=== PATIENT | female | born 1950 | race Caucasian/White ===

== ENCOUNTER → 2020-11-19 01:19 | Outpatient (CLI) | payer MEDICARE, OTHER, SELFPAY ==
[2020-11-19 19:43] LABS: SARS-CoV-2 RNA PCR Negative
== END ==
PROVIDERS: Visit Provider Internal Medicine Gastroenterology
DX: Z01.812 Encounter for preprocedural laboratory examination (principal); Z20.822 Contact with and (suspected) exposure to COVID-19
CPT/HCPCS: C9803; U0003; U0005

== ENCOUNTER 2020-11-23 02:10 | Day surgery (SDC) | payer MEDICARE, OTHER, SELFPAY ==
[2020-11-11 15:04] VITALS: BMI 19.5
--- NOTE | 2020-11-22 15:28 | WPDANESEPPF ---
Anes - Initial Pre Proc Eval Procedure: Operation Date: 11/23/20 07:30 Proposed Procedures p Screening Colonoscopy - Femi Ronquillo MD Date/Time: 11/22/20 15:28 Surgeon: Femi Ronquillo MD Pre Op Diagnosis: family hx of colon ca, neoplasm screening Patient Data Age: 70 Gender: F Height: 1.6 m Weight: 50 kg Allergies Allergy/AdvReac Type Severity Reaction Status Date / Time No Known Allergies Allergy Verified 11/23/20 06:27 Home Medications Medication Instructions Recorded Confirmed Type buspirone 5 mg BID 11/11/20 11/11/20 History losartan 50 mg PO DAILY 11/11/20 11/11/20 History meloxicam 15 mg PO PRN PRN 11/11/20 11/11/20 History raloxifene 60 mg DAILY 11/11/20 11/11/20 History rosuvastatin 10 mg PO 3XW 11/11/20 11/11/20 History Patient hx anesthesia problems: none Family hx anesthesia problems: none [facility] Past Medical History Medical History HTN (hypertension) Hypercholesterolemia Osteopenia Social History Social History Years smoked: 42 Smoking status: Current every day smoker Substance use type: does not use Spiritual care concerns: No Anes - Eval Final PreProcedure Day of Procedure 11/22/20 15:28 Patient weight: normal Heart: regular rate and rhythm Lungs: clear to auscultation and normal air movement Airway: Mallampati scale class II Neurological: alert and oriented Last oral intake: >/= 8 hours ASA classification: II Emergent: no Anesthetic plan: proceed Anesthesia type and monitoring: general GIVS Informed Consent: The patient's anesthetic plan and its attendant risks and benefits were discussed with the patient/family/POA. Questions were solicited and answers provided to the satisfaction of the patient/family/POA.
[2020-11-23 06:29] VITALS: BP 83/54; PULSE 60; RESP 18; TEMP 36.7; O2SAT 99
[2020-11-23] MEDS: LACTATED RINGERS 1,000 ML 150 ML IV CONT (06:38)
--- NOTE | 2020-11-23 06:55 | PM.HPGS ---
History of Present Illness History of Present Illness Consent: Risks, benefits, and alternatives have been discussed and questions answered. Patient agrees to proceed with procedure. Chief complaint: family hx of colon ca, neoplasm screening Narrative: Kaera Mancuso is a 70 year old female Here for colon cancer screening. She has a family history of colon cancer Review of Systems Review of Systems: All systems reviewed & are unremarkable except as noted in HPI and below PMFSH Past Medical History Medical History HTN (hypertension) Hypercholesterolemia Osteopenia Social History Social History Years smoked: 42 Smoking status: Current every day smoker Substance use type: does not use Spiritual care concerns: No Meds Home Medications and Allergies Home Medications Medication Instructions Recorded Confirmed Type buspirone 5 mg BID 11/11/20 11/11/20 History losartan 50 mg PO DAILY 11/11/20 11/11/20 History meloxicam 15 mg PO PRN PRN 11/11/20 11/11/20 History raloxifene 60 mg DAILY 11/11/20 11/11/20 History rosuvastatin 10 mg PO 3XW 11/11/20 11/11/20 History Allergies Allergy/AdvReac Type Severity Reaction Status Date / Time No Known Allergies Allergy Verified 11/23/20 06:27 Vital Signs Vital Signs - 24 hr 11/23/20 06:29 Temperature 36.7 C Pulse Rate 60 Respiratory Rate 18 Blood Pressure 83/54 L Pulse Oximetry 99 Exam Resp: Auscultation: clear to auscultation bilaterally Cardio: Rate: regular rate Rhythm: regular rhythm GI: GI Palp: Yes Soft to palpation and No Tenderness to palpation present (GI) Assessment and Plan Assessment and plan (1) Colon cancer screening: Code(s): Z12.11 - Encounter for screening for malignant neoplasm of colon Status: Acute Assessment and Plan: Colonoscopy with possible biopsy or polypectomy or cautery or injection of substances.
[2020-11-23 07:40] VITALS: BP 123/68; PULSE 68; RESP 22; O2SAT 100
[2020-11-23 07:50] VITALS: BP 123/76; PULSE 71; RESP 24; O2SAT 100
[2020-11-23 08:00] VITALS: BP 125/75; PULSE 60; RESP 18; O2SAT 100
== END 2020-11-23 08:17 | disposition home or self-care (01) ==
PROVIDERS: Visit Provider Internal Medicine Gastroenterology
PROC: 0DJD8ZZ Inspection of Lower Intestinal Tract, Via Natural or Artificial Opening Endoscopic (ICD-10-PCS; CPT 45378; principal; 2020-11-23 07:30)
DX: Z12.11 Encounter for screening for malignant neoplasm of colon (principal); K57.30 Diverticulosis of large intestine without perforation or abscess without bleeding; Z80.0 Family history of malignant neoplasm of digestive organs; I10 Essential (primary) hypertension; E78.00 Pure hypercholesterolemia, unspecified; M85.80 Other specified disorders of bone density and structure, unspecified site; F17.200 Nicotine dependence, unspecified, uncomplicated
CPT/HCPCS: G0105; J2704; J7120

== ENCOUNTER 2024-08-04 00:18 | Day surgery (SDC) | payer MEDICARE, SELFPAY ==
[2024-07-23 11:07] VITALS: BMI 19.5
--- OUTSIDE RECORDS SUMMARY | 2024-08-04 00:22 | XMS_ITS | Clinical Summary ---
Author Organization [facility] Address [address] [place] [address] Phone Care Team Providers Care Direct Selling Counselor Name Role Phone Arthur Chang MD Primary Care Provider [phone] Allergies No known active allergies Medications lisinopril (PRINIVIL) 10 mg Oral tablet Take 10 mg by mouth daily. Active rosuvastatin (CRESTOR) 10 mg Oral tablet Take 5 mg by mouth daily at bedtime. Active raloxifene (EVISTA) 60 mg Oral tablet Take 1 Tab by mouth daily. 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 Gender Identity Not on file Sexual Orientation Not on file Last Filed Vital Signs Vital Sign Reading Time Taken Comments Blood Pressure 124/86 03/24/2012 11:59 AM CDT Pulse - - Temperature - - Respiratory Rate - - Oxygen Saturation - - Inhaled Oxygen Concentration - - Weight 60.1 kg (132 lb 8 oz) 03/24/2012 11:59 AM CDT Height 161.9 cm (5' 3.75 ) 03/24/2012 11:59 AM C DT Body Mass Index 22.92 03/24/2012 11:59 AM CDT Plan of Treatment Health Maintenance Due Date Last Done Comments DTAP/TDAP/TD VACCINES (1 - Tdap) 1970 PNEUMOCOCCAL VACCINE 65+ YEA RS (1 of 2 - PCV) 1970 COLORECTAL SCREENING 1996 FIT-DNA Q 3 years 1996 Flex Sig/CT Colonography Q 5 years 1996 ZOSTER VACCINE (1 of 2) 2001 BREAST CANCER SCREENING 03/05/2013 03/05/2012 Colorectal Cancer Screening 03/24/2013 FIT/FOBT Q 1 year 03/24/2013 03/24/2012 INFLUENZA VACCINE (#1) 2024 RSV VACCINE (60+ or ) (1 - 1-dose 75+ series) 2026 OSTEOPOROSIS SCREENING Completed 03/24/2012, 2008 Procedures Procedure Name Priority Date/Time Associated Diagnosis Comments POC OCCULT BLOOD 1 CARD Routine 03/24/2012 Screening for malignant neoplasm of the rectum XR DEXA BONE DENSITY AXIAL 1 OR MORE SITES Routine 03/24/2012 History of osteoporosis MAMMO SCREEN BILAT W OR WO CAD Routine 03/05/2012 from Last 3 Months or Most Recently Relevant to Health Maintenance Results * (ABNORMAL) XR DEXA BONE DENSITY AXIAL 1 OR MORE SITES (03/24/2012) T-SCORE FEMUR (LEFT) [facility] T-SCORE FEM[facility] (RIGHT) [facility] T-SCORE FEMUR -2.1(A) >=-0.99 [facility] T-SCORE SPINE -2.6(A) >=-0.99 [facility] T-SCORE HIP (LEFT) [facility] T-SCORE HIP (RIGHT) [facility] T-SCORE HIP >=-0.99 [facility] Anatomical Region Laterality Modality Other us Veronica Padilla MD DIAGNOSTIC IMAGING ORDERABLE S Final Result * POC OCCULT BLOOD 1 CARD (03/24/2012) OCCULT BLOOD #1 Negative NEG [facility] Stool specimen (specimen) us Veronica Padilla MD POINT OF CARE TESTING Final Result [facility] * MAMMO DIGITAL SCREEN BILAT (03/05/2012) Anatomical Region Laterality Modality Breast Bilateral Other us Veronica Padilla MD MAMMO ORDERABLES Final Resul t from Last 3 Months or Most Recently Relevant to Health Maintenance Insurance Care Teams Direct Selling Counselor Relationship Specialty Start Date End Date Arthur Chang MD PCP - General Internal Medicine 03/24/12
--- OUTSIDE RECORDS SUMMARY | 2024-08-04 00:22 | XMS_ITS | Clinical Summary ---
Author Organization [facility] Address [address] [place] [address] Care Team Providers Care Synoptic Meteorologist Name Role Phone Unavailable Primary Care Provider Unavailabl e Source Comments [facility],non-owned Affiliates and Associated Physician Practices is amultiple site organization consisting of ambulatory clinics and hospital sitesin [place], [place], [place] and [place]. This disclosure is being madepursuant to the Care Everywhere program and may not contain all information available regarding this patient. Last updated 18.[facility] [employer] Social History Tobacco Use Types Packs/Day Years Used Date Smoking Tobacco: Never Assessed Sex and Gender Information Value Date Recorded Sex Assigned at Not on file Gender Identity Not on file Sexual Orientation Not on file Plan of Treatment Health Maintenance Due Date Last Done Comments BONE DENSITY TESTING 1950 COLOGUARD (AGES 45-75) - COL ON CA SCREENING 1951 COLON MONITORING 1951 COLONOSCOPY - COLON CA SCREENING 1950 CT COLONOGRAPHY - COLON CA SCREENING 1950 Colorectal Cancer Screening 1951 FIT - COLON CA SCREENING 1951 FLEX SIG - COLON CA SCREENING 1951 LIPID TESTING 1950 MAMMOGRAM 1950 MEDICARE AWV ? 12 MONTHS 1950 HEPATITIS C SCREENING 05/15/1969 DTAP/TDAP/TD VACCINES (1 - Tdap) 1970 PNEUMOCOCCAL VACCINE 50+ (1 of 1 - PCV) 2001 ZOSTER VACCINE (1 of 2) 2001 COVID-19 VACCINE (1 - 2023-2 5 season) 2024 INFLUENZA VACCINE (#1) 2024 DEPRESSION SCREENING 07/08/2024 Respiratory Syncytial Virus (RSV) Vaccine Pt: or over 60 yrs (1 - 1-dose 75+ series) 2026 HEPATITIS B VACCINE Aged Out No longe r eligible based on patient's age to complete this topic HIB VACCINE Aged Out No longer eligi ble based on patient's age to complete this topic HPV VACCINE Aged Out No longer eligi ble based on patient's age to complete this topic MENINGOCOCCAL (Group B) VACCINE Aged Out No longer eligible based on patient's age to complete this topic MENINGOCOCCAL VACCINE Aged Out No stephanie veronica eligible based on patient's age to complete this topic Advance Directives Documents on File Type Date Recorded Patient Procurement Representative Expl anation Adv Directive/Living Will/POA 11/20/2016
--- OUTSIDE RECORDS SUMMARY | 2024-08-04 00:22 | XMS_ITS | Referral Summary ---
Author Organization [facility] Address [address] [place] [address] Care Team Providers Care Double Cutter Name Role Phone Unavailable Primary Care Provider Unavailabl e Source Comments [facility],non-owned Affiliates and Associated Physician Practices is amultiple site organization consisting of ambulatory clinics and hospital sitesin [place], [place], [place] and [place]. This disclosure is being madepursuant to the Care Everywhere program and may not contain all information available regarding this patient. 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
--- OUTSIDE RECORDS SUMMARY | 2024-08-04 00:25 | XMS_ITS | Data Portability ---
Author Organization [facility] Address [address] [place] [address] Care Team Providers Care Contract Lead Name Role Phone SANTOS CHANG Primary Care Provider [phone] Assessment Encounter Date Assessment Date Assessment LastModified by Organization Details LastModified Time 09/16/2023 09/16/2023 Hypertension controlled dyslipidemia low-fat diet and medication osteoarthritis meloxicam sparingly GERD stable omeprazole to continue osteopenia raloxifen avoidance of tobacco products and alcohol sparingly follow-up 6 months. Mammogram ordered. old records [email or web address] Not available 09/16/2023 10:27:16 03/17/2024 03/17/2024 we will continue current therapy. Colonoscopy. She will be due for a bone density next year. Follow up will be in 6 months all questions answered advised to stay up to date on flu COVID pneumococcal [email or web address] Not available 04/05/2024 13:00:39 04/16/2024 04/16/2024 we will empirically treat with Flagyl 500 t.i.d. times 10 days if this is negative then we will consider restarting stool sample versus colonoscopy and CT scan. Quitting tobacco care instructions as well. She will let me know after 10 days how she is doing [email or web address] Not available 04/18/2024 17:03:37 Plan of Treatment Reminders Order Date Submit Date Provider Last Modified By Organization Details Last Modified Time Details Appointments ANY 15 2024 10:00A Farhana Chang MD Not available Not available Not available Lab lipid panel, serum 2023 024 [place] [facility], [address], [place], [address], 03/18/2024 06:20:55 CMP, serum or plasma 2023 024 [place] [facility], [address], [place], [address], 03/18/2024 06:20:55 CBC w/ auto diff 2023 024 [place] [facility], [address], [place], [address], 03/18/2024 06:20:56 Referral None recorded. Procedures colonosco py screening (PROC) 2023 024 dion [facility], [address] [facility] [address], [place], [address], 08/03/2024 11:32:55 Surgeries None recorded. Imaging MAMMO, screening , bilateral 2023 024 [facility] ([facility]), [address] [facility], [place], [address], 09/30/2023 12:16:56 Medication Orders metronida zole 500 mg tablet 2023 [email or web address] [id number], [address] [facility], [place], [place], [id number], 04/16/2024 17:57:18 Patient TargetsNo targets recorded. Patient Instructions Encounter Date Encounter Id Patient Instructions Last Modified By Organization Details Last Modified Time 04/16/2024 [id number] Quitting Tobacco : Care Instructions [email or web address] Not available 04/16/2024 17:57:18 Reason for Referral None Reported. Results Created Date Observation Date Name Description Value Unit Range Abnormal Flag Note LastModifiedBy Organization Detail LastModifiedTime 03/17/20 24 03/18/2024 LIPID PANEL cholesterol, total 176 mg/dL 100-19 9 Not Available [facility] ([facility]) [address] [facility], [place], [address], 03/18/2024 06:20:54 03/17/20 24 03/18/2024 LIPID PANEL triglyceride s 80 mg/dL 0-149 Not Available [facility] ([facility]) [address] [place], [address], 03/18/2024 06:20:54 03/17/20 24 03/18/2024 LIPID PANEL HDL cholesterol 83 mg/dL >39 Not Available [facility]) [address] [place], [address], 03/18/2024 06:20:54 03/17/20 24 03/18/2024 LIPID PANEL VLDL cholesterol ganesh 15 mg/dL 5-40 Not Available [facility] ([facility]) [address] [place], [address], 03/18/2024 06:20:54 03/17/20 24 03/18/2024 LIPID PANEL LDL chol calc ([facility]) 78 mg/dL 0-99 Not Available [facility]) [address] [place], [address], 03/18/2024 06:20:54 03/17/20 24 03/18/2024 COMP. METAB OLIC PANEL (14) glucose 112 mg/dL 70-99 above high normal Not Available [facility] ([facility]) [address] [place], [address], 03/18/2024 06:20:55 03/17/20 24 03/18/2024 COMP. METAB OLIC PANEL (14) BUN 17 mg/dL 8-27 Not Available [facility] ([facility]) [address] [place], [address], 03/18/2024 06:20:55 03/17/20 24 03/18/2024 COMP. METAB OLIC PANEL (14) creatinine 0.81 mg/dL 0.57-1 .00 Not Available [facility] ([facility]) [address] [place], [address], 03/18/2024 06:20:55 03/17/20 24 03/18/2024 COMP. METAB OLIC PANEL (14) eGFR 77 mL/mi n/1.7 3 >59 Not Available [facility] ([facility]) [address], [place], [address], 03/18/2024 06:20:55 03/17/20 24 03/18/2024 COMP. METAB OLIC PANEL (14) BUN/creatini ne ratio 21 12-28 Not Available [facility] ([facility]) [address] [facility], [place], [address], 03/18/2024 06:20:55 03/17/20 24 03/18/2024 COMP. METAB OLIC PANEL (14) sodium 138 mmol/ L 134-14 4 Not Available [facility] ([facility]) [address] [facility], [place], [address], 03/18/2024 06:20:55 03/17/20 24 03/18/2024 COMP. METAB OLIC PANEL (14) potassium 4.6 mmol/ L 3.5-5. 2 Not Available [facility] ([facility]) [address] [facility], [place], [address], 03/18/2024 06:20:55 03/17/20 24 03/18/2024 COMP. METAB OLIC PANEL (14) chloride 100 mmol/ L 96-106 Not Available [facility] ([facility]) [address] [facility], [place], [address], 03/18/2024 06:20:55 03/17/20 24 03/18/2024 COMP. METAB OLIC PANEL (14) carbon dioxide, total 24 mmol/ L 20-29 Not Available [facility] ([facility]) [address] [facility], [place], [address], 03/18/2024 06:20:55 03/17/20 24 03/18/2024 COMP. METAB OLIC PANEL (14) calcium 9.8 mg/dL 8.7-10 .3 Not Available [facility] ([facility]) [address], [place], [address], 03/18/2024 06:20:55 03/17/20 24 03/18/2024 COMP. METAB OLIC PANEL (14) protein, total 7.2 g/dL 6.0-8. 5 Not Available [facility] ([facility]) [address], [place], [address], 03/18/2024 06:20:55 03/17/20 24 03/18/2024 COMP. METAB OLIC PANEL (14) albumin 4.5 g/dL 3.8-4. 8 Not Available [facility] ([facility]) [address], [place], [address], 03/18/2024 06:20:55 03/17/20 24 03/18/2024 COMP. METAB OLIC PANEL (14) globulin, total 2.7 g/dL 1.5-4. 5 Not Available [facility] ([facility]) [address], [place], [address], 03/18/2024 06:20:55 03/17/20 24 03/18/2024 COMP. METAB OLIC PANEL (14) bilirubin, total 0.3 mg/dL 0.0-1. 2 Not Available [facility] ([facility]) [address] [facility], [place], [address], 03/18/2024 06:20:55 03/17/20 24 03/18/2024 COMP. METAB OLIC PANEL (14) alkaline phosphatase 67 IU/L 44-121 Not Available [facility] ([facility]) [address], [place], [address], 03/18/2024 06:20:55 03/17/20 24 03/18/2024 COMP. METAB OLIC PANEL (14) AST (SGOT) 24 IU/L 0-40 Not Available [facility] ([facility]) [address] [place], [address], 03/18/2024 06:20:55 03/17/20 24 03/18/2024 COMP. METAB OLIC PANEL (14) ALT (SGPT) 12 IU/L 0-32 Not Available [facility] ([facility]) [address] [place], [address], 03/18/2024 06:20:55 03/17/20 24 03/17/2024 CBC WITH DIFFE RENTI AL/PL ATELE T WBC 12.2 x10e3 /uL 3.4-10 .8 above high normal Not Available [facility] ([facility]) [address] [place], [address], 03/18/2024 06:20:56 03/17/20 24 03/17/2024 CBC WITH DIFFE RENTI AL/PL ATELE T RBC 4.49 x10e6 /uL 3.77-5 .28 Not Available [facility] ([facility]) [address] [place], [address], 03/18/2024 06:20:56 03/17/20 24 03/17/2024 CBC WITH DIFFE RENTI AL/PL ATELE T hemoglobin 14.1 g/dL 11.1-1 5.9 Not Available [facility] ([facility]) [address] [place], [address], 03/18/2024 06:20:56 03/17/2003/17/2024 CBC WITH DIFFE RENTI AL/PL ATELE T hematocrit 43.1 % 34.0-4 6.6 Not Available [facility] ([facility]) [address] [place], [address], 03/18/2024 06:20:56 03/17/20 24 03/17/2024 CBC WITH DIFFE RENTI AL/PL ATELE T MCV 96 fL 79-97 Not Available [facility] ([facility]) [address] [place], [address], 03/18/2024 06:20:56 03/17/20 24 03/17/2024 CBC WITH DIFFE RENTI AL/PL ATELE T MCH 31.4 pg 26.6-3 3.0 Not Available [facility] ([facility]) [address] [facility], [place], [address], 03/18/2024 06:20:56 03/17/20 24 03/17/2024 CBC WITH DIFFE RENTI AL/PL ATELE T MCHC 32.7 g/dL 31.5-3 5.7 Not Available [facility] ([facility]) [address] [place], [address], 03/18/2024 06:20:56 03/17/20 24 03/17/2024 CBC WITH DIFFE RENTI AL/PL ATELE T RDW 12.1 % 11.7-1 5.4 Not Available [facility] ([facility]) [address] [place], [address], 03/18/2024 06:20:56 03/17/20 24 03/17/2024 CBC WITH DIFFE RENTI AL/PL ATELE T platelets 338 x10e3 /uL 150-45 0 Not Available [facility] ([facility]) [address] [place], [address], 03/18/2024 06:20:56 03/17/2003/17/2024 CBC WITH DIFFE RENTI AL/PL ATELE T neutrophils 66 % notest ab. Not Available [facility] ([facility]) [address] [place], [address], 03/18/2024 06:20:56 03/17/20 24 03/17/2024 CBC WITH DIFFE RENTI AL/PL ATELE T lymphs 22 % notest ab. Not Available [facility] ([facility]) [address] [facility], [place], [address], 03/18/2024 06:20:56 03/17/20 24 03/17/2024 CBC WITH DIFFE RENTI AL/PL ATELE T monocytes 9 % notest ab. Not Available [facility] ([facility]) [address] [facility], [place], [address], 03/18/2024 06:20:56 03/17/20 24 03/17/2024 CBC WITH DIFFE RENTI AL/PL ATELE T eos 2 % notest ab. Not Available [facility] ([facility]) [address] [facility], [place], [address], 03/18/2024 06:20:56 03/17/20 24 03/17/2024 CBC WITH DIFFE RENTI AL/PL ATELE T basos 1 % notest ab. Not Available [facility] ([facility]) [address] [place], [address], 03/18/2024 06:20:56 03/17/20 24 03/17/2024 CBC WITH DIFFE RENTI AL/PL ATELE T neutrophils (absolute) 8.2 x10e3 /uL 1.4-7. 0 above high normal Not Available [facility] ([facility]) [address] [place], [address], 03/18/2024 06:20:56 03/17/20 24 03/17/2024 CBC WITH DIFFE RENTI AL/PL ATELE T lymphs (absolute) 2.6 x10e3 /uL 0.7-3. 1 Not Available [facility] ([facility]) [address] [place], [address], 03/18/2024 06:20:56 03/17/20 24 03/17/2024 CBC WITH DIFFE RENTI AL/PL ATELE T monocytes(ab solute) 1.0 x10e3 /uL 0.1-0. 9 above high normal Not Available [facility] ([facility]) [address] [facility], [place], [address], 03/18/2024 06:20:56 03/17/20 24 03/17/2024 CBC WITH DIFFE RENTI AL/PL ATELE T eos (absolute) 0.2 x10e3 /uL 0.0-0. 4 Not Available [facility] ([facility]) [address] [facility], [place], [address], 03/18/2024 06:20:56 03/17/20 24 03/17/2024 CBC WITH DIFFE RENTI AL/PL ATELE T baso (absolute) 0.1 x10e3 /uL 0.0-0. 2 Not Available [facility] ([facility]) [address] [facility], [place], [address], 03/18/2024 06:20:56 03/17/20 24 03/17/2024 CBC WITH DIFFE RENTI AL/PL ATELE T immature granulocytes 0 % notest ab. Not Available [facility] ([facility]) [address] [facility], [place], [address], 03/18/2024 06:20:56 03/17/20 24 03/17/2024 CBC WITH DIFFE RENTI AL/PL ATELE T immature grans (abs) 0.0 x10e3 /uL 0.0-0. 1 Not Available [facility] ([facility]) [address] [facility], [place], [address], 03/18/2024 06:20:56 04/06/20 24 04/07/2024 COMP. METAB OLIC PANEL (14) glucose 106 mg/dL 70-99 above high normal Not Available [facility] ([facility]) [address] [facility], [place], [address], 04/07/2024 08:29:10 04/06/20 24 04/07/2024 COMP. METAB OLIC PANEL (14) BUN 21 mg/dL 8-27 Not Available [facility] ([facility]) [address] [place], [address], 04/07/2024 08:29:10 04/06/20 24 04/07/2024 COMP. METAB OLIC PANEL (14) creatinine 0.76 mg/dL 0.57-1 .00 Not Available [facility] ([facility]) [address] [facility] [place], [address], 04/07/2024 08:29:10 04/06/20 24 04/07/2024 COMP. METAB OLIC PANEL (14) eGFR 83 mL/mi n/1.7 3 >59 Not Available [facility] ([facility]) [address] [facility] [place], [address], 04/07/2024 08:29:10 04/06/20 24 04/07/2024 COMP. METAB OLIC PANEL (14) BUN/creatini ne ratio 28 12-28 Not Available [facility] ([facility]) [address] [facility], [place], [address], 04/07/2024 08:29:10 04/06/20 24 04/07/2024 COMP. METAB OLIC PANEL (14) sodium 137 mmol/ L 134-14 4 Not Available [facility] ([facility]) [address] [facility] [place], [address], 04/07/2024 08:29:10 04/06/20 24 04/07/2024 COMP. METAB OLIC PANEL (14) potassium 5.0 mmol/ L 3.5-5. 2 Not Available [facility] ([facility]) [address] [facility] [place], [address], 04/07/2024 08:29:10 04/06/20 24 04/07/2024 COMP. METAB OLIC PANEL (14) chloride 99 mmol/ L 96-106 Not Available [facility] ([facility]) [address] [facility], [place], [address], 04/07/2024 08:29:10 04/06/20 24 04/07/2024 COMP. METAB OLIC PANEL (14) carbon dioxide, total 23 mmol/ L Not Available [facility] ([facility]) [address], [place], [address], 04/07/2024 08:29:10 04/06/20 24 04/07/2024 COMP. METAB OLIC PANEL (14) calcium 9.5 mg/dL 8.7-10 .3 Not Available [facility] ([facility]) [address] [place], [address], 04/07/2024 08:29:10 04/06/20 24 04/07/2024 COMP. METAB OLIC PANEL (14) protein, total 6.9 g/dL 6.0-8. 5 Not Available [facility] ([facility]) [address] [facility], [place], [address], 04/07/2024 08:29:10 04/06/20 24 04/07/2024 COMP. METAB OLIC PANEL (14) albumin 4.4 g/dL 3.8-4. 8 Not Available [facility] ([facility]) [address] [place], [address], 04/07/2024 08:29:10 04/06/20 24 04/07/2024 COMP. METAB OLIC PANEL (14) globulin, total 2.5 g/dL 1.5-4. 5 Not Available [facility] ([facility] [address] [place], [address], 04/07/2024 08:29:10 04/06/20 24 04/07/2024 COMP. METAB OLIC PANEL (14) bilirubin, total 0.3 mg/dL 0.0-1. 2 Not Available [facility] ([facility]) [address] [place], [address], 04/07/2024 08:29:10 04/06/20 24 04/07/2024 COMP. METAB OLIC PANEL (14) alkaline phosphatase 59 IU/L 44-121 Not Available [facility] ([facility]) [address] [facility], [place], [address], 04/07/2024 08:29:10 04/06/20 24 04/07/2024 COMP. METAB OLIC PANEL (14) AST (SGOT) 24 IU/L 0-40 Not Available [facility] ([facility]) [address] [facility], [place], [address], 04/07/2024 08:29:10 04/06/20 24 04/07/2024 COMP. METAB OLIC PANEL (14) ALT (SGPT) 13 IU/L 0-32 Not Available [facility] ([facility]) [address] [facility], [place], [address], 04/07/2024 08:29:10 04/06/20 24 04/07/2024 CBC WITH DIFFE RENTI AL/PL ATELE T WBC 12.0 x10e3 /uL 3.4-10 .8 above high normal Not Available [facility] ([facility]) [address] [facility], [place], [address], 04/07/2024 08:29:11 04/06/20 24 04/07/2024 CBC WITH DIFFE RENTI AL/PL ATELE T RBC 4.63 x10e6 /uL 3.77-5 .28 Not Available [facility] ([facility]) [address] [facility], [place], [address], 04/07/2024 08:29:11 04/06/20 24 04/07/2024 CBC WITH DIFFE RENTI AL/PL ATELE T hemoglobin 14.3 g/dL 11.1-1 5.9 Not Available [facility] ([facility]) [address] [facility], [place], [address], 04/07/2024 08:29:11 04/06/20 24 04/07/2024 CBC WITH DIFFE RENTI AL/PL ATELE T hematocrit 43.7 % 34.0-4 6.6 Not Available [facility] ([facility]) [address] [facility], [place], [address], 04/07/2024 08:29:11 04/06/20 24 04/07/2024 CBC WITH DIFFE RENTI AL/PL ATELE T MCV 94 fL 79-97 Not Available [facility] ([facility]) [address] [facility], [place], [address], 04/07/2024 08:29:11 04/06/20 24 04/07/2024 CBC WITH DIFFE RENTI AL/PL ATELE T MCH 30.9 pg 26.6-3 3.0 Not Available [facility] ([facility]) [address] [facility], [place], [address], 04/07/2024 08:29:11 04/06/20 24 04/07/2024 CBC WITH DIFFE RENTI AL/PL ATELE T MCHC 32.7 g/dL 31.5-3 5.7 Not Available [facility] ([facility]) [address] [facility], [place], [address], 04/07/2024 08:29:11 04/06/20 24 04/07/2024 CBC WITH DIFFE RENTI AL/PL ATELE T RDW 12.3 % 11.7-1 5.4 Not Available [facility] ([facility]) [address] [facility], [place], [address], 04/07/2024 08:29:11 04/06/20 24 04/07/2024 CBC WITH DIFFE RENTI AL/PL ATELE T platelets 347 x10e3 /uL 150-45 0 Not Available [facility] ([facility]) [address] [facility], [place], [address], 04/07/2024 08:29:11 04/06/20 24 04/07/2024 CBC WITH DIFFE RENTI AL/PL ATELE T neutrophils 70 % notest ab. Not Available [facility] ([facility]) [address] [facility], [place], [address], 04/07/2024 08:29:11 04/06/20 24 04/07/2024 CBC WITH DIFFE RENTI AL/PL ATELE T lymphs 21 % notest ab. Not Available [facility] ([facility]) [address] [facility], [place], [address], 04/07/2024 08:29:11 04/06/20 24 04/07/2024 CBC WITH DIFFE RENTI AL/PL ATELE T monocytes 7 % notest ab. Not Available [facility] ([facility]) [address] [facility], [place], [address], 04/07/2024 08:29:11 04/06/20 24 04/07/2024 CBC WITH DIFFE RENTI AL/PL ATELE T eos 2 % notest ab. Not Available [facility] ([facility]) [address] [facility], [place], [address], 04/07/2024 08:29:11 04/06/20 24 04/07/2024 CBC WITH DIFFE RENTI AL/PL ATELE T basos 0 % notest ab. Not Available [facility] ([facility]) [address] [facility], [place], [address], 04/07/2024 08:29:11 04/06/20 24 04/07/2024 CBC WITH DIFFE RENTI AL/PL ATELE T neutrophils (absolute) 8.4 x10e3 /uL 1.4-7. 0 above high normal Not Available [facility] ([facility]) [address] [facility], [place], [address], 04/07/2024 08:29:11 04/06/20 24 04/07/2024 CBC WITH DIFFE RENTI AL/PL ATELE T lymphs (absolute) 2.5 x10e3 /uL 0.7-3. 1 Not Available [facility] ([facility]) [address] [facility], [place], [address], 04/07/2024 08:29:11 04/06/20 24 04/07/2024 CBC WITH DIFFE RENTI AL/PL ATELE T monocytes(ab solute) 0.8 x10e3 /uL 0.1-0. 9 Not Available [facility] ([facility]) [address] [facility], [place], [address], 04/07/2024 08:29:11 04/06/20 24 04/07/2024 CBC WITH DIFFE RENTI AL/PL ATELE T eos (absolute) 0.2 x10e3 /uL 0.0-0. 4 Not Available [facility] ([facility]) [address] [facility], [place], [address], 04/07/2024 08:29:11 04/06/20 24 04/07/2024 CBC WITH DIFFE RENTI AL/PL ATELE T baso (absolute) 0.1 x10e3 /uL 0.0-0. 2 Not Available [facility] ([facility]) [address] [facility], [place], [address], 04/07/2024 08:29:11 04/06/20 24 04/07/2024 CBC WITH DIFFE RENTI AL/PL ATELE T immature granulocytes 0 % notest ab. Not Available [facility] ([facility]) [address] [facility], [place], [address], 04/07/2024 08:29:11 04/06/20 24 04/07/2024 CBC WITH DIFFE RENTI AL/PL ATELE T immature grans (abs) 0.0 x10e3 /uL 0.0-0. 1 Not Available [facility] ([facility]) [address] [facility], [place], [address], 04/07/2024 08:29:11 04/08/20 24 04/09/2024 C DIFFI CILE TOXIN S A+B, EIA C difficile toxins A+B, EIA NEGATI VE negati ve Not Available [facility] ([facility]) [address] [place], [address], 04/09/2024 15:13:25 04/08/20 24 04/10/2024 STOOL CULTU RE salmonella/s higella screen FINAL REPORT Not Available [facility] ([facility]) [address] [place], [address], 04/12/2024 15:08:39 04/08/20 24 04/10/2024 STOOL CULTU RE E coli shiga toxin EIA NEGATI VE negati ve Not Available [facility] ([facility]) [address] [place], [address], 04/12/2024 15:08:39 04/08/20 24 04/10/2024 STOOL CULTU RE result 1 COMMEN T No Salmo jimmy or Shige lla recov ered. Not Available [facility] ([facility]) [address] [place], [address], 04/12/2024 15:08:39 04/08/20 24 04/12/2024 STOOL CULTU RE campylobacte r culture FINAL REPORT Not Available [facility] ([facility]) [address] [place], [address], 04/12/2024 15:08:39 04/08/20 24 04/12/2024 STOOL CULTU RE result 1 COMMEN T No Campy lobac ter speci es isola harmony. Not Available [facility] ([facility]) [address] [place], [address], 04/12/2024 15:08:39 04/08/20 24 04/15/2024 OVA + CHICA ITE EXAM ova + parasite exam FINAL REPORT These resul ts were obtai aftab using wet prepa ratio n(s) and trich rohan stain ed smear . This test does not inclu de testi ng for Crypt ospor idium parvu m, Cyclo spora , or Micro spori mari. Not Available [facility] ([facility]) [address] [facility], [place], [address], 04/15/2024 18:36:15 04/08/20 24 04/15/2024 OVA + CHICA ITE EXAM result 1 COMMEN T No ova, cysts , or chica ites seen. One negat em speci men does not rule out the possi bilit y of a chica itic infec tion. Not Available [facility] ([facility]) [address] [facility], [place], [address], 04/15/2024 18:36:15 09/30/19 24 09/30/2023 MAMMO , scree seth, bilat eral No observ ation record ed. [address] [place], [address], 10/02/2023 15:36:03 05/25/20 24 05/25/2024 CT, abdom en + pelvi s, w/ contr ast No observ ation record ed. [facility] [address] [place], [address], 05/27/2024 10:34:07 Result Notes None recorded. Problems Name Problem SNOMED Code Status Onset Date Resolution Date Notes Provider Name and Address Organization Details Recorded Time Hyperlipidemia 89591487 Active 2023 Santos Chang MD Attn: Amos adler,[address] [facility], [place], [address], [facility] 4 10:19:41 Essential hypertension 36994660 Active 2023 Santos Chang MD Attn: Amos adler,[address] [facility], [place], [address], [facility] 4 10:19:42 Osteoarthritis 937395448 Active 2023 Santos Chang MD Attn: Amos adler,[address] [facility], [place], [address], [facility] 4 10:19:44 Gastroesophage al reflux disease without esophagitis 565670282 Active 2023 Santos Chang MD Attn: Amos adler,[address] [facility], [place], [address], [facility] 4 10:19:45 Problem Notes None recorded. Procedures Surgical History Date Name Laterality Status Provider Name and Address Organization Details Recorded Time Tonsillectomy completed Emilia Zelaya Timmy [facility] 09/16/2023 10:12:45 insertion of denture completed CAROLYN Amaya [facility] 09/16/2023 10:14:41 Imaging Results Imaging Date Name Status LastModified by Organiz ation Details LastModified Time 09/30/2023 MAMMO, screening, bilateral completed [address] [place], [address], 10/02/2023 15:36:03 05/25/2024 CT, abdomen + pelvis, w/ contrast completed [facility] [address] [place], [address], 05/27/2024 10:34:07 Procedure Notes None recorded. Medical Equipment None Reported. Allergies No known drug allergies Medications Name Sig Start Date Stop Date Status Note LastModified by Organization Details LastModified Time losartan 50 mg tablet TAKE 1 TABLET BY MOUTH EVERY DAY 09/15 completed Not Available Not Available Not Available carvedilol 6.25 mg tablet TAKE 1/2 TABLET BY MOUTH TWICE DAILY 2024 active Not Available Not Available Not Avai lable meloxicam 15 mg tablet TAKE 1 TABLET EVERY DAY BY ORAL ROUTE NEEDED. active Not Available Not Available No t Available triamcinolo ne acetonide 0.5 % topical ointment APPLY GRAM TOPICALLY TO THE AFFECTED AREA TWICE DAILY 03/17 completed Not Available Not Available Not Available metronidazo le 500 mg tablet TAKE 1 TABLET BY MOUTH THREE TIMES DAILY FOR 10 DAYS active Not Available Not Available No t Available nifedipine ER 30 mg tablet,exte nded release TAKE 1 TABLET BY MOUTH EVERY DAY 09/15 completed Not Available Not Available Not Available amlodipine 5 mg tablet TAKE 1 TABLET BY MOUTH EVERY DAY 09/15 completed Not Available Not Available Not Available omeprazole 20 mg capsule,del ayed release Take 1 capsule every day by oral route. active Not Available Not Available No t Available raloxifene 60 mg tablet TAKE 1 TABLET BY MOUTH EVERY DAY 2024 active Not Available Not Available Not Avai lable methylpredn isolone 4 mg tablets in a dose pack FOLLOW PACKAGE DIRECTION S 03/17 completed Not Available Not Available Not Available nifedipine ER 60 mg tablet,exte nded release TAKE 1 TABLET BY MOUTH DAILY 2024 active Not Available Not Available Not Avai lable amoxicillin 875 mg-potassiu m clavulanate 125 mg tablet TAKE 1 TABLET BY MOUTH TWICE DAILY 03/17 completed Not Available Not Available Not Available rosuvastati n 10 mg tablet take 1 tablet by mouth 3times a week 2024 active Not Available Not Available Not Avai lable Alive Calcium-Vit mcgill D3 calcium 1200 mg, vit d3 25 mcg active Not Available Not Available No t Available Vitals Date Recorded Body height Provider Name an d Address Organization Details Last Updated DateTime 09/16/2023 160.02 cm [facility]/16/2023 10:03:35 Date Recorded Body mass index (BMI) Body weight Provider Name and Address Organization Details Last Updated DateTime 09/16/2023 19 kg/m2 10143.18 g Emilia Zelaya [facility] 09/16/2023 10:03:52 Date Recorded Heart rate Provider Name an d Address Organization Details Last Updated DateTime 09/16/2023 101 /min Emilia costello [facility] 09/16/2023 10:10:42 Date Recorded Oxygen saturation Oxygen saturation in Arterial blood by Pulse oximetry Provider Name and Address Organization Details Last Updated DateTime 09/16/2023 98 % 98 % Emilia Zelaya [facility] 09/16/2023 10:10:46 Date Recorded Body height Provider Name an d Address Organization Details Last Updated DateTime 03/17/2024 160.02 cm Lolita Adair [facility] 03/17/2024 10:02:58 Date Recorded Body mass index (BMI) Body weight Provider Name and Address Organization Details Last Updated DateTime 03/17/2024 19.6 kg/m2 50051.68 g Lolita Adair [facility] 04/2024 10:03:11 Date Recorded Heart rate Provider Name an d Address Organization Details Last Updated DateTime 03/17/2024 76 /min Lolita Adair [facility] 03/17/2024 10:03:55 Date Recorded Oxygen saturation Oxygen saturation in Arterial blood by Pulse oximetry Provider Name and Address Organization Details Last Updated DateTime 03/17/2024 96 % 96 % Lolita Adair [facility] 03/17 10:03:58 Date Recorded Body height Provider Name an d Address Organization Details Last Updated DateTime 04/16/2024 160.02 cm Ananya Quarles [facility] 15:33:04 Date Recorded Body mass index (BMI) Body weight Provider Name and Address Organization Details Last Updated DateTime 04/16/2024 19.9 kg/m2 29698.06 g Ananya Quarles [facility] 1 15:35:47 Date Recorded Heart rate Provider Name an d Address Organization Details Last Updated DateTime 04/16/2024 80 /min Ananya Quarles [facility] 15:39:54 Date Recorded Oxygen saturation Oxygen saturation in Arterial blood by Pulse oximetry Provider Name and Address Organization Details Last Updated DateTime 04/16/2024 98 % 98 % Ananya Quarles [facility] 04/16/2024 15:39:57 Date Recorded Systolic blood pressure Diastolic blood pressure Provider Name and Address Organization Details Last Updated DateTime 09/16/2023 122 mm[Hg] 82 mm[Hg] CAROLYN Amaya [facility] 09/16/2023 10:10:39 Date Recorded Systolic blood pressure Diastolic blood pressure Provider Name and Address Organization Details Last Updated DateTime 03/17/2024 124 mm[Hg] 84 mm[Hg] Lolita Adair [facility] 03/08 10:05:02 Date Recorded Systolic blood pressure Diastolic blood pressure Provider Name and Address Organization Details Last Updated DateTime 04/16/2024 128 mm[Hg] 64 mm[Hg] Ananya Quarles [facility] 04/16/2024 15:39:32 Social History Question Answer Notes LastModified by Organizat ion Details LastModified Time Tobacco Smoking Status Current Every Day Smoker Emiliaray Zelaya, CAROLYN shannon, [facility] 09/16/2023 10:09:27 What Is Your Level Of Alcohol Consumption? Occasional Wine Information not available 09/16/2023 Are You Blind Or Do You Have Difficulty Seeing? No Information not available 03/17/2024 What Is Your Level Of Caffeine Consumption? Occasional Information not available 03/17/2024 In The 14 Days Before Symptom Onset, Have You Had Close Contact With A Laboratory-confir med COVID-19 While That Case Was Ill? No Information not available 03/17/2024 In The 14 Days Before Symptom Onset, Have You Had Close Contact With A Person Who Is Under Investigation For COVID-19 While That Person Was Ill? No Information not available 03/17/2024 Have You Been To An Area Known To Be High Risk For COVID-19? No Information not available 03/17/2024 Are You Currently Employed? No Information not available 04/16/2024 Are You Deaf Or Do You Have Serious Difficulty Hearing? No Information not available 03/17/2024 What Type Of Diet Are You Following? REGULAR Information not available 03/17/2024 Are There Any Guns Present In Your Home? No Information not available 03/17/2024 What Was The Date Of Your Most Recent Tobacco Screening? 04/16/2024 Information not available 04/16/2024 What Is Your Relationship Status? [email or web address] Information not available 09/16/2023 Do You Use Your Seat Belt Or Car Seat Routinely? Yes Information not available 03/17/2024 Do You Have Smoke And Carbon Monoxide Detectors In Your Home? Yes Information not available 03/17/2024 How Much Tobacco Do You Smoke? 2 PPD Information not available 09/16/2023 Do You Use Any Illicit Or Recreational Drugs? No Information not available 03/17/2024 Do You Use Sunscreen Routinely? Yes Information not available 03/17/2024 Has Tobacco Cessation Counseling Been Provided? Yes Information not available 09/16/2023 On What Date Was Tobacco Cessation Counseling Provided? 04/16/2024 Information not available 04/16/2024 How Many Years Have You Smoked Tobacco? 40 Information not available 09/16/2023 Sex: Female Functional Status Question Answer Note LastModified by Organization D etails LastModified Time Are you able to care for yourself? Yes Information n ot available 03/17/2024 What is your exercise level? None Information not available 04/16/2024 Mental Status None recorded. Family History Relationship Description Onset Age of this Age Resolved Age Notes LastModified by Organization Details LastModified Time Mother Malignant tumor of colon [email or web address] Not available 09/05 10:13:08 Brother Malignant neoplasm of liver [email or web address] Not available 09/05 10:13:18 Medical History Condition Response High Blood Pressure Y Cancer Y Osteoporosis Y High Cholesterol Y Gynecological HistoryNo gynecological history recorded. Obstetrics History GPAL:G 1 P 0 0 0 1 Type Value Living 1 Total 1 Past Encounters Encounter ID Performer Location Encounter Start Date Encounter Closed Date Diagnosis/Indication Diagnosis SNOMED-CT Code Diagnosis ICD10 Code Diagnosis Note [id number] MD Aaron Cerna (Adult Med) [address] [place] [phone] 09/16/2023 09:40:47 09/16/2023 10:24:50 Hyperlipidemia 98061872 E78.5 Essential hypertension 49423464 I10 Osteoarthritis 482555587 M19.90 Gastroesop hageal reflux disease without esophagitis 251027564 K21.9 Osteopenia 709365803 M85 .80 Screening mammography 24 537253 Z12.31 [id number] MD Aaron Cerna (Adult Med) [address] [place] [phone] 03/17/2024 09:41:05 03/17/2024 10:55:49 Screening for malignant neoplasm of colon 378308027 Z12.11 Essential hypertension 34080928 I10 Gastroesop hageal reflux disease without esophagitis 896835308 K21.9 Hyperlipidemia 06274618 E78.5 [id number] Santos Chang MD [facility]ael [facility]a [address] [place] [address] 04/16/2024 15:01:44 04/16/2024 16:35:45 Smoker 06253144 F17.200 Diarrhea 89642087 R19.7 Health Concerns Section Related Observation LastModified by Organization Detai ls LastModified Time None Recorded Concern Status LastModified by Organization Details LastModified Time None Recorded Advance Directives Directive None Recorded Payers Encounter Date Sequence Insurance Name Policy Number Policy Villasenor Covered Member ID Villasenor Member ID Guarantor Name 09/16/2023 1 [place] Keara A Jamee [id number] Keara Jamee 09/16/2023 2 [employer] [place] (MEDICARE SUPPLEMENT) Keara Jamee [id number] Keara Jamee 03/17/2024 1 [place]ear[place] A Jamee [id number] 6 Keara Jamee 03/17/2024 2 [employer] [place] (MEDICARE SUPPLEMENT) Keara Jamee [id number] Keara Jamee 04/16/2024 1 [place] Keara A Jamee [id number] 6 Keara Jamee 04/16/2024 2 [employer] [place] (MEDICARE SUPPLEMENT) Keara Jamee [id number] Keara Jamee Notes Date Note Type Note Provider Name and Address Organization Details Recorded Time 09/16/2023 text/html Hyperlipidemia d oes try to follow diet. Hypertension blood pressure doing a lot better osteoarthritis meloxicam sparingly GERD no nausea vomiting omeprazole doing fine osteopenia is taking the raloxifene. Is due for a mammogram. Santos Chang MD Attn: [address] [facility], [place], [address], [facility] 09/16/2023 10:27:38 03/17/2024 text/html Hypertension no headache no dizziness. GERD no nausea vomiting or heartburn. Hyperlipidemia taking the rosuvastatin without any side effects. Osteoarthritis she uses the meloxicam sparingly. Osteoporosis she is taking the raloxifene Santos Chang MD Attn: [address] [facility], [place], [address], [facility] 04/05/2024 13:01:02 04/16/2024 text/html diarrhea several stools a day sometimes watery not really foul smelling no blood or mucus no sick contacts no travel stool studies negative. Had actually wakes her up at night Santos Chang MD Attn: [address] [facility], [place], [address], [facility] 04/18/2024 17:04:01 OBGyn Episode No OBEpisode recorded.
--- OUTSIDE RECORDS SUMMARY | 2024-08-04 00:25 | XMS_ITS | Encounter Summary ---
Author Organization [facility] Address [facility] [facility] [place] [address] Care Team Providers Care Sales And Service Officer Name Role Phone Unavailable Primary Care Provider Unavailabl e Encounter Details Date Type Department Care Team (Late st Contact Info) Description 02/13/2022 Lab Requisition [facility] Care D[facility] [address] [facility] [place] [phone] Seth Arguello MD [address] [facility] [place] [address] Social History Tobacco Use Types Packs/Day Years Used Date Smoking Tobacco: Never Assessed Sex and Gender Information Value Date Recorded Sex Assigned at Not on file Gender Identity Not on file Sexual Orientation Not on file documented as of this encounter Plan of Treatment Not on file documented as of this encounter Procedures Procedure Name Priority Date/Time Associated Diagnosis Comments DERMATOPATHOLOGY Routine 02/13/2022 12:0 0 AM CDT documented in this encounter Results * DERMATOPATHOLOGY (02/13/2022 12:00 AM CDT) Case Report Dermatopathology Report ? Case: [id number] ? Authorizing Provider: ??Seth Arguello MD ?Collected: ? 02/13/2022 12:00 AM ? Ordering Location: ? [facility] Derm[facility] Lab ?Received: ?02/13/2022 03:57 PM ? Pathologist: ? Farhana Nam MD ? Specimen: ?Skin, right nose tip ? 2 5:30 PM T DERMATOPATHOLOGY LABORATORY Final Diagnosis Specimen A. SKIN, right nose tip: ACTINIC KERATOSIS (L57.0) (see microscopic description) 2 5:30 PM [facility] DERMATOPATHOLOGY LABORATORY Clinical History AK vs. BCCA. Path# [id number] 5:30 PM [facility] DERMATOPATHOLOGY LABORATORY Gross Description Specimen A: Received is one formalin filled container labeled with the patient's name and designated right nose tip. The specimen consists of a shave biopsy measuring 2t0l1mg. Jar 0. 5:30 PM [facility] DERMATOPATHOLOGY LABORATORY Microscopic Description Specimen A. SKIN, right nose tip: There is focal parakeratosis. The lower half of the epidermis shows disorderly maturation of keratinocytes with nuclear pleomorphism. Additional deeper sections were obtained and reviewed. 5:30 PM [facility] DERMATOPATHOLOGY LABORATORY Disclaimer An external and internal positive and negative controls are appropriate for the histochemical, immunohistochemical and immunofluorescence stain(s) in this case (if any), except where stated explicitly. The performance characteristics of the stain(s) cited in this report were developed and its performance characteristic determined by the Dermatopathology Laboratory at [facility], directed by Dr. Ishan Nma. These tests need not be, and therefore are not, approved by the [place] Food and Drug Administration. The tests are used for clinical purposes. Billing Codes Specimen Charges Stain Charges 63710 1 2 5:30 PM CDT DERMATOPATHOLOGY LABORATORY Embedded Images 2 5:30 PM CDT DERMATOPATHOLOGY LABORATORY Pathology/Cytolog y TISSUE SPECIMEN FROM SKIN / Unknown 02/13/2022 02/13/2022 3:57 PM CDT Seth Arguello MD LAB - PATHOLOGY/CYTO LOGY ORDERABLES DERMATOPATHOLOGY LABORATORY [facility] - Department of Dermatology [facility] Medicine [address] [place] [address], [address] [phone] documented in this encounter Visit Diagnoses Not on filedocumented in this encounter
--- OUTSIDE RECORDS SUMMARY | 2024-08-04 00:25 | XMS_ITS | Patient Health Summary ---
Author Organization [facility] Address [address] [facility] [place] [address] Care Team Providers Care Product Specialist Name Role Phone Unavailable Primary Care Provider Unavailabl e Note from [facility],non-owned Affiliates and Associated Physician Practices is amultiple site organization consisting of ambulatory clinics and hospital sitesin [place], [place] and [place]. This disclosure is being madepursuant to the Care Everywhere program and may not contain all information available regarding this patient. Last updated 18.[facility] Social History Tobacco Use Types Packs/Day Years Used Date Smoking Tobacco: Never Assessed Sex and Gender Information Value Date Recorded Sex Assigned at Not on file Gender Identity Not on file Sexual Orientation Not on file Procedures * DERMATOPATHOLOGY(Performed 02/13/2022) Results * DERMATOPATHOLOGY (02/13/2022 12:00 AM CDT) Case Report Dermatopathology Report ? Case: [id number] ? Authorizing Provider: ??Seth Arguello MD ?Collected: ? 02/13/2022 12:00 AM ? Ordering Location: ? [facility] Care DermPath Lab ?Received: ?02/13/2022 03:57 PM ? Pathologist: ? Farhana Nam MD ? Specimen: ?Skin, right nose tip ? 2 5:30 PM CDT DERMATOPATHOLOGY LABORATORY Final Diagnosis Specimen A. SKIN, right nose tip: ACTINIC KERATOSIS (L57.0) (see microscopic description) 2 5:30 PM CDT DERMATOPATHOLOGY LABORATORY Clinical History AK vs. BCCA. Path# [id number] 2 5:30 PM CDT DERMATOPATHOLOGY LABORATORY Gross Description Specimen A: Received is one formalin filled container labeled with the patient's name and designated right nose tip. The specimen consists of a shave biopsy measuring 5v4q0gn. Jar 0. 2 5:30 PM CDT DERMATOPATHOLOGY LABORATORY Microscopic Description Specimen A. SKIN, right nose tip: There is focal parakeratosis. The lower half of the epidermis shows disorderly maturation of keratinocytes with nuclear pleomorphism. Additional deeper sections were obtained and reviewed. 2 5:30 PM CDT DERMATOPATHOLOGY LABORATORY Disclaimer An external and internal positive and negative controls are appropriate for the histochemical, immunohistochemical and immunofluorescence stain(s) in this case (if any), except where stated explicitly. The performance characteristics of the stain(s) cited in this report were developed and its performance characteristic determined by the Dermatopathology Laboratory at [facility], directed by Dr. Ishan Nam. These tests need not be, and therefore are not, approved by the [place] Food and Drug Administration. The tests are used for clinical purposes. Billing Codes Specimen Charges Stain Charges 73034 1 2 5:30 PM CDT DERMATOPATHOLOGY LABORATORY Embedded Images 2 5:30 PM CDT DERMATOPATHOLOGY LABORATORY Pathology/Cytolog y TISSUE SPECIMEN FROM SKIN / Unknown 02/13/2022 02/13/2022 3:57 PM CDT Seth Arguello MD LAB - PATHOLOGY/CYTO LOGY ORDERABLES DERMATOPATHOLOGY LABORATORY [facility] - Department of Dermatology [facility] Medicine [address] [place] [address], [address] [phone]
[2024-08-04 11:07] VITALS: BP 148/99; PULSE 77; RESP 18; TEMP 36.3; O2SAT 99; BMI 18.7
[2024-08-04] MEDS: LACTATED RINGERS 1,000 ML 150 ML IV CONT (11:20)
--- NOTE | 2024-08-04 11:39 | WPDANESEPPF ---
Anes - Initial Pre Proc Eval Procedure: Operation Date: 08/04/24 12:30 Proposed Procedures p Colonoscopy - Warner Cabrera MD Date/Time: 08/04/24 11:39 Surgeon: Warner Cabrera MD Pre Op Diagnosis: change in bowel habit,Diarrhea Patient Data Age: 74 Gender: F Height: 1.6 m Weight: 47.9 kg Last Vital Signs Temp 36.3 C L 08/04/24 11:07 Pulse 77 08/04/24 11:07 Resp 18 08/04/24 11:07 BP 148/99 H 08/04/24 11:07 Pulse Ox 99 08/04/24 11:07 O2 Del Method Room Air 08/04/24 11:07 Allergies Allergy/AdvReac Type Severity Reaction Status Date / Time No Known Allergies Allergy Verified 08/04/24 11:05 Home Medications ?Medication ?Instructions ?Recorded ?Confirmed ?Type meloxicam 15 mg tablet 15 mg PO PRN PRN Pain 11/11/20 07/23/24 History raloxifene 60 mg tablet 60 mg PO DAILY 11/11/20 08/04/24 History rosuvastatin 10 mg tablet 10 mg PO 3XW 11/11/20 08/04/24 History carvedilol 6.25 mg tablet 6.25 mg PO Q12H 05/29/24 08/04/24 History nifedipine 60 mg tablet,extended 60 mg PO DAILY 05/29/24 08/04/24 History release Patient hx anesthesia problems: none Family hx anesthesia problems: none Results Review: All pre-operative results and documents have been reviewed as part of the pre-operative evaluation. [facility] Past Medical History Medical History HTN (hypertension) Hypercholesterolemia Osteopenia Social History Social History Smoking packs per day: 2 Smoking cigarettes per day: 40.0 Years smoked: 45 Smoking pack-years: 90.00 Smoking status: Current every day smoker Tobacco type: cigarettes Alcohol intake: current Drinks per week: 14 Alcohol use details: 2 glasses of wine a night Substance use: never Substance use type: does not use Living arrangements: alone Spiritual care concerns: No Anes - Eval Final PreProcedure Day of Procedure 08/04/24 11:39 Patient weight: normal Heart: regular rate and rhythm Lungs: clear to auscultation and normal air movement Airway: Mallampati scale class II Neurological: alert and oriented Last oral intake: >/= 8 hours ASA classification: III Emergent: no Anesthetic plan: proceed Anesthesia type and monitoring: general GIVS and standard monitoring Results Review: All pre-operative results and documents have been reviewed as part of the pre-operative evaluation. Informed Consent: The patient's anesthetic plan and its attendant risks and benefits were discussed with the patient/family/POA. Questions were solicited and answers provided to the satisfaction of the patient/family/POA.
--- NOTE | 2024-08-04 11:46 | PM.IMHP ---
H&P: HPI History of Present Illness Date/Time: 08/04/24 11:46 Chief Complaint: Family history of colorectal cancer Narrative: the patient's mother and brother have both colorectal cancer in their 50s. Her last colonoscopy was 8 years ago and she had polyps. She is currently asymptomatic from GI standpoint. Review of Systems Review of Systems: All systems reviewed & are unremarkable except as noted in HPI and below PMFSH Past Medical History Medical History HTN (hypertension) Hypercholesterolemia Osteopenia Social History Social History Smoking packs per day: 2 Smoking cigarettes per day: 40.0 Years smoked: 45 Smoking pack-years: 90.00 Smoking status: Current every day smoker Tobacco type: cigarettes Alcohol intake: current Drinks per week: 14 Alcohol use details: 2 glasses of wine a night Substance use: never Substance use type: does not use Living arrangements: alone Spiritual care concerns: No Meds Home Medications and Allergies Home Medications ?Medication ?Instructions ?Recorded ?Confirmed ?Type meloxicam 15 mg tablet 15 mg PO PRN PRN Pain 11/11/20 07/23/24 History raloxifene 60 mg tablet 60 mg PO DAILY 11/11/20 08/04/24 History rosuvastatin 10 mg tablet 10 mg PO 3XW 11/11/20 08/04/24 History carvedilol 6.25 mg tablet 6.25 mg PO Q12H 05/29/24 08/04/24 History nifedipine 60 mg tablet,extended 60 mg PO DAILY 05/29/24 08/04/24 History release Allergies Allergy/AdvReac Type Severity Reaction Status Date / Time No Known Allergies Allergy Verified 08/04/24 11:05 Vital Signs Vital Signs - 24 hr 08/04/24 11:07 Temperature 97.4 F L Pulse Rate 77 Respiratory Rate 18 Blood Pressure 148/99 H Pulse Oximetry 99 Oxygen Delivery Room Air Exam Const: General: cooperative and healthy appearing Resp: Effort & Inspection: normal respiratory effort and able to speak in complete sentences Auscultation: clear to auscultation bilaterally Cardio: Rate: regular rate Rhythm: regular rhythm GI: Inspection: normal to inspection GI Palp: No No hepatosplenomegaly present Auscultation: normal bowel sounds Rectal Exam: deferred Skin: General skin exam: normal color Psych: Appearance: grossly normal Mental Status: mental status grossly normal Assessment and Plan Assessment and plan (1) Family history of colon cancer: Code(s): Z80.0 - Family history of malignant neoplasm of digestive organs Status: Acute Assessment and Plan: The patient is deemed a good candidate for the procedure. Consent signed. Will proceed.
[2024-08-04 13:30] VITALS: BP 131/63; PULSE 82; RESP 18; O2SAT 100
[2024-08-04 13:40] VITALS: BP 159/87; PULSE 73; RESP 18; O2SAT 100
[2024-08-04 13:50] VITALS: BP 169/83; PULSE 71; RESP 18; O2SAT 100
== END 2024-08-04 14:05 | disposition home or self-care (01) ==
PROVIDERS: PCP Internal Medicine; Referring Provider Nurse Practitioner; Visit Provider Internal Medicine Gastroenterology
PROC: 0DJD8ZZ Inspection of Lower Intestinal Tract, Via Natural or Artificial Opening Endoscopic (ICD-10-PCS; CPT 45378; principal; 2024-08-04 12:30)
DX: Z12.11 Encounter for screening for malignant neoplasm of colon (principal); K57.30 Diverticulosis of large intestine without perforation or abscess without bleeding; Z80.0 Family history of malignant neoplasm of digestive organs; Z86.0100 Personal history of colon polyps, unspecified; F17.210 Nicotine dependence, cigarettes, uncomplicated
CPT/HCPCS: G0105; J2704; J7120